=== PATIENT | female | born 1995 | race Caucasian/White ===

== ENCOUNTER 2022-09-08 08:40 | Outpatient (CLI) | payer OTHER, SELFPAY ==
--- NOTE | ~2022-09-08 | US_ITS ---
Limited Abdominal Sonogram: Real-time sonographic imaging of the right upper quadrant was performed. Clinical History: Diarrhea Findings: The liver appears normal with no evidence of mass lesion or bile duct dilatation. Main por miko vein demonstrates normal direction of flow. The gallbladder is well distended, and appears normal with no evidence of gallstone or wall thickening. The common bile duct measures 3 mm. The visualize d pancreas, aorta, and IVC are unremarkable. Impression: No significant abnormality seen. Reviewed, dictated and finalized at location M. Impression: No significant abnormality seen.
== END 2022-09-08 08:41 | disposition home or self-care (01) ==
LOC: ANHIMG 08:44
PROVIDERS: PCP Pediatrics; Visit Provider Family Medicine
DX: R19.7 Diarrhea, unspecified (principal); R11.10 Vomiting, unspecified; K21.9 Gastro-esophageal reflux disease without esophagitis
CPT/HCPCS: 76705